=== PATIENT | male | born 1980 | race Caucasian/White ===

== ENCOUNTER 2018-02-06 14:19 | Emergency (ER) | payer OTHER ==
[2018-02-06 14:43] VITALS: BP 127/79
--- NOTE | 2018-02-06 15:15 | UC ---
Skin Complaint HPI - HPI Summary HPI Summary: Pt c/o left AC abscess that began 1 day ago. pt is an IV drug user and last used IV drugs on February 01. Pt began suboxone on . Pt reports that abscess began on February 05. Pt's put "pin" in abscess last night and had moderate amount of purulent discharge. Pt reports abscess site has become increasingly red, hardened and tender to touch. - History of Current Complaint Chief Complaint: UCSkin Time Seen by Provider: 02/06/18 15:00 Stated Complaint: SKIN CONCERN - LFT ARM Hx Obtained From: Patient Onset/Duration: Sudden Onset, Lasting Hours - 24 Skin Exposure Onset/Duration: Days Ago Timing: Constant Onset Severity: Mild Current Severity: Moderate Pain Intensity: 5 Location: Discrete - left AC Character: Redness, Raised, Painful Aggravating Factor(s): Touch Associated Signs & Symptoms: Positive: Drainage, Tenderness Related History: Other: - IV drug use - Allergy/Home Medications Allergies/Adverse Reactions: Allergies Allergy/AdvReac Type Severity Reaction Status Date / Time erythromycin base Allergy Difficulty Verified 02/06/18 14:28 Breathing/Wheezing Penicillins Allergy Difficulty Verified 02/06/18 14:28 Breathing tetracycline Allergy Difficulty Verified 02/06/18 14:28 Breathing Home Medications: Home Medications Baclofen TAB* [Lioresal TAB*] 10 mg PO Q6HR PRN 02/06/18 [History Confirmed ] Buprenorphine/Naloxone SL TAB* [Suboxone 8-2 mg SL TAB*] 1 tab BID 02/06/18 [ History Confirmed 02/06/18] Ibuprofen TAB* [Motrin TAB* 800 MG] 1 tab TID PRN 02/06/18 [History Confirmed ] Review of Systems Constitutional: Negative Skin: Other - erythema, swelling, drainage, Eyes: Negative ENT: Negative Respiratory: Negative Cardiovascular: Negative Gastrointestinal: Negative Genitourinary: Negative Motor: Negative Neurovascular: Negative Musculoskeletal: Edema - left ac Neurological: Negative Psychological: Negative Is Patient Immunocompromised?: No All Other Systems Reviewed And Are Negative: Yes PMH/Surg Hx/FS Hx/Imm Hx Previously Healthy: No - IV drug user - Surgical History Surgical History: Yes Surgery Procedure, Year, and Place: 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 - Family History Known Family History: Positive: Cardiac Disease - Social History Occupation: Unemployed Lives: With Family Alcohol Use: None Substance Use Type: None Substance Use Comment - Amount & Last Used: PAST HX [facility]/HEROIN/OPIATES;CLEAN SINCE 02/02/18 Smoking Status (MU): Never Smoked Tobacco Type: Smokeless Tobacco Have You Smoked in the Last Year: No Physical Exam Triage Information Reviewed: Yes Appearance: Pain Distress Vital Signs: Initial Vital Signs Temp 98.6 F 02/06/18 14:31 Pulse 103 02/06/18 14:31 Resp 18 02/06/18 14:31 BP 127/79 02/06/18 14:31 Pulse Ox 100 02/06/18 14:31 Vital Signs Reviewed: Yes Eye Exam: Normal ENT Exam: Normal ENT: Positive: Hearing grossly normal Dental Exam: Normal Neck exam: Normal Respiratory Exam: Normal Respiratory: Positive: No respiratory distress Cardiovascular: Positive: Tachycardia Musculoskeletal: Positive: Edema @ - left AC Neurological Exam: Normal Psychological Exam: Normal Skin Exam: Other - 4 cm X 4 cm non indurated tender, firm mass, erythematous with serous drainage.. Area was marked with surgical marker to monitor for spread of erythema. Course/Dx - Course Course Of Treatment: I discussed with the pt the need to monitor for worsening infection. I recommended that pt needed further evaluation and testing and recommended going to ER immediately. I discussed my concern for sepsis. Pt verbalized understanding and agreed to seek care as soon as possible at [facility]. - Differential Diagnoses - Skin Complaint Differential Diagnoses: Abscess, Cellulitis, MRSA - Diagnoses Provider Diagnoses: Left AC abcess. possible MRSA Discharge - Sign-Out/Discharge Documenting (check all that apply): Patient Departure - Discharge Plan Condition: Stable Disposition: HOME-RECOMMEND TO ED Prescriptions: Cephalexin CAP* [Keflex 500 CAP*] 500 mg PO Q8H #30 cap Sulfamethox/Trimethoprim DS* [Bactrim DS 800/160 TAB*] 1 tab PO Q12H #20 tab Patient Education Materials: Abscess (ED) Referrals: Alejandra Black MD [Primary Care Provider] - If Needed Additional Instructions: Please note that we recommend that you seek care immediately at the closest emergency department. Please monitor for signs and symptoms for any worsening of infection including but not limited to fever, chills, and worsening erythema at wound site. - Billing Disposition and Condition Condition: STABLE Disposition: Home-Recommend to ED
== END 2018-02-06 15:29 | disposition home health service (06) ==
LOC: UCCORT 14:19
DX: L02.414 Cutaneous abscess of left upper limb (principal); Z88.1 Allergy status to other antibiotic agents; Z88.0 Allergy status to penicillin
CPT/HCPCS: 87070; 87205; 87640; 87641; 99212; G0463